=== PATIENT | male | born 1985 | race Caucasian/White ===

== ENCOUNTER 2018-09-25 13:35 | Emergency (ER) | payer SELFPAY ==
[2018-09-25 14:06] VITALS: BP 134/89; PULSE 81; RESP 16; TEMP 36.8; O2SAT 96; BMI 24.3
[2018-09-25] MEDS: PROPARACAINE 0.5% OPHTH SOL 1 DROPS EYE-LEFT (16:38)
--- NOTE | 2018-09-25 17:00 | ED_ITS ---
HPI - Eye Problem <BELKIS Hawley - Last Filed: 09/25/18 22:47> General Chief complaint: Eye Problems Stated complaint: left eye, pressure, sensitive to light, watering Time Seen by Provider: 09/25/18 16:11 Source: patient Mode of arrival: ambulatory Limitations: no limitations History of Present Illness HPI Narrative: 33-year-old male with history of sarcoidosis and is a nonsmoker here for complaint of pain and redness to his left eye that started this morning. He denies any trauma to the left eye. Pain is worsened with bright lights. He states that the eye has been watering. He states he were contacts yesterday and slept with them. He removed the contact today he said the contacts were intact. There was a brand new set of contacts he put his eye yesterday. He denies any visual changes. No other concerns or complaints at this timeframe. chief complaint: eye redness Related Data Home Medications Medication Instructions Recorded Confirmed prednisone 20 mg tablet mg PO 90 Days #90 tab 02/15/18 Previous Rx's Medication Instructions Recorded lamotrigine ER 200 mg 400 mg PO QDAY #180 tab 02/15/18 tablet,extended release 24 hr lamotrigine 200 mg tablet 400 mg PO DAILY #60 tab MDD 400mg 08/17/18 ciprofloxacin HCl See Rx Instructions .ROUTE 09/25/18 .COMPLEX #5 ml Allergies Allergy/AdvReac Type Severity Reaction Status Date / Time No Known Drug Allergies Allergy Verified 09/25/18 14:06 Review of Systems <BELKIS Hawley - Last Filed: 09/25/18 22:47> Constitutional Denies chills, Denies fatigue, Denies fever(s), Denies lethargy and Denies weakness Eyes Reports irritation ENT Ears, Nose, Mouth, and Throat: Denies change in voice, Denies neck pain, Denies sore throat and Denies throat swelling Respiratory Denies wheezing Gastrointestinal Gastrointestinal: Denies abdominal pain, Denies change in bowel habits, Denies diarrhea, Denies nausea and Denies vomiting Musculoskeletal Denies neck pain Integumentary/Breasts Denies pruritus, Denies erythema, Denies rash and Denies wounds Neurologic Denies confusion and Denies weakness Psychiatric Denies anxiety, Denies confusion, Denies depression, Denies homicidal ideation and Denies suicidal ideation Endocrine Denies fatigue and Denies flushing Allergic/Immunologic Denies urticaria, Denies throat swelling and Denies wheezing PFSH <BELKIS Hawley - Last Filed: 09/25/18 22:47> Social History Smoking Status: Never smoker Social History Smoking Status: Never smoker Exam <BELKIS Hawley - Last Filed: 09/25/18 22:47> Initial Vital Signs Initial Vital Signs: Vital Signs Temperature 98.2 F 09/25/18 14:06 Pulse Rate 81 09/25/18 14:06 Respiratory Rate 16 09/25/18 14:06 Blood Pressure 134/89 09/25/18 14:06 Pulse Oximetry 96 09/25/18 14:06 Const General: cooperative and well developed Nutritional Appearance: well nourished Orientation: alert, awake, oriented x3 and not confused HENMT Throat: posterior oropharynx normal and posterior oropharynx abnormal Eyes Conjunctivae: conjunctival abnormality left conjunctival injection Sclera: sclerae normal Cornea: fluorescein used ( Small round 1 mm circular area of uptake to the 11 o'clock cornea. ) Pupils: PERRL EOM: EOM intact bilaterally Other: no foreign bodies appreciated. No other findings on exam. ocular pressure at 20 Cardio Rate: regular rate Rhythm: regular rhythm Heart Sounds: no click, no gallops, no murmurs and no rubs Pulses: normal peripheral pulses Neuro General: alert, oriented x3, gait normal and no focal motor deficits Speech: speech normal <Julia Oleary MD - Last Filed: 09/29/18 18:11> Initial Vital Signs Initial Vital Signs: Vital Signs Temperature 98.2 F 09/25/18 14:06 Pulse Rate 81 09/25/18 14:06 Respiratory Rate 16 09/25/18 14:06 Blood Pressure 134/89 09/25/18 14:06 Pulse Oximetry 96 09/25/18 14:06 Course <BELKIS Hawley - Last Filed: 09/25/18 22:47> Orders Ordered: Discontinued Medications Proparacaine HCl (Parcaine 0.5% Ophth Margie) 1 drops EYE-LEFT NOW ONE Stop: 09/25/18 16:38 Last Admin: 09/25/18 16:38 Dose: 1 drop Vital Signs - 8 hr 09/25/18 17:25 Pulse Rate 82 Respiratory Rate 18 Blood Pressure 143/99 H Pulse Oximetry 99 <Julia Oleary MD - Last Filed: 09/29/18 18:11> Orders Ordered: Discontinued Medications Proparacaine HCl (Parcaine 0.5% Ophth Margie) 1 drops EYE-LEFT NOW ONE Stop: 09/25/18 16:38 Last Admin: 09/25/18 16:38 Dose: 1 drop Vital Signs - 8 hr 09/25/18 17:25 Pulse Rate 82 Respiratory Rate 18 Blood Pressure 143/99 H Pulse Oximetry 99 MDM - Eye Problem <BELKIS Hawley - Last Filed: 09/25/18 22:47> MDM Narrative Medical decision making narrative: no foreign bodies are found on exam. Visual acuity is 20/25. ocular pressure was tested at 20. very small area of fluorescein uptake approximately 1 mm in diameter in room to the 11 o'clock position of the cornea. No other fluorescein uptake was seen. No foreign bodies. Will treat for corneal abrasion/conjunctivitis with Ciprodex. he is encouraged to follow up with primary care provider the next few days for re- evaluation or follow up with Ophthalmology. for any worsening symptoms return emergency room. no contacts until symptoms resolve. For any worsening symptoms return emergency room. Discharge Plan Departure Patient Disposition: Home Clinical Impression: Corneal abrasion Qualifiers: Encounter type: initial encounter Laterality: left Qualified Code(s): S05.02XA - Injury of conjunctiva and corneal abrasion without foreign body, left eye, initial encounter Discharge Date/Time: 09/25/18 17:26 Interventions: ED Discharge Assessment Last Done: 09/25/18 17:25 Instructions: DI for Corneal Abrasion, DI for Conjunctivitis Activity Restrictions/Additional Instructions: very small abrasion was seen into the cornea. You are covered with an antibiotic to treat for infection to abrasion area and also cover for conjunctivitis use [id number] Tylenol or Motrin as needed for any discomfort. Follow up with her primary care provider in the next couple days for re-evaluation. May also follow up with Ophthalmology at the number provided. Use eye glasses and no contacts until symptoms resolve. For any worsening sympt Prescriptions: New ciprofloxacin HCl 0.3 % drops See Rx Instructions .ROUTE .COMPLEX Qty: 5 RF: 0 No Action prednisone 20 mg TABLET PO 90 Days Qty: 90 RF: 0 lamotrigine 200 mg tablet extended release 24hr 400 mg PO QDAY Qty: 180 RF: 1 Hold Instructions: no insurance, cost too high lamotrigine 200 mg tablet 400 mg PO DAILY MDD 400mg Qty: 60 RF: 4 Referrals: Mayco Franco MD [Physician] - Sera Rodriguez PA-C [Primary Care Provider] - Stand Alone Forms: Work Release Note
[2018-09-25 17:25] VITALS: BP 143/99; PULSE 82; RESP 18; O2SAT 99
== END 2018-09-25 17:26 | disposition home or self-care (01) ==
PROVIDERS: Emergency Provider Nurse Practitioner Family; PCP Physician Assistant
DX: S05.02XA Injury of conjunctiva and corneal abrasion without foreign body, left eye, initial encounter (principal)
CPT/HCPCS: 99283

== ENCOUNTER 2020-01-19 12:07 | Emergency (ER) | payer OTHER, SELFPAY ==
[2020-01-19 12:17] VITALS: BP 163/116; PULSE 89; RESP 14; TEMP 36.6; O2SAT 100; BMI 25.8
--- NOTE | 2020-01-19 12:48 | ED.WOUNDLAC ---
HPI - Wound/Laceration <BELKIS Sam - Last Filed: 01/19/20 19:35> General Chief Complaint: Wound/Laceration Stated Complaint: Laceration To Left Pointer Finger Time Seen by Provider: 01/19/20 12:25 Source: patient Mode of arrival: Ambulatory Limitations: no limitations History of Present Illness HPI narrative: 34yo male presents to the emergency department for a laceration to his left index finger. He states he was working when he cut it with a saw around 11AM (two hours ago), patient kept working, put some electrical tape on the laceration. Patient states his last Tdap was approximately 10 months ago. He denies any numbness, tingling, difficulty moving his finger, fevers, chills, nausea, vomiting, diarrhea, or any other concerns. Patient denies taking blood thinners. Related Data Previous Rx's Medication Instructions Recorded lamotrigine 200 mg tablet 400 mg PO DAILY #60 tab MDD 400mg 08/11/19 Allergies Allergy/AdvReac Type Severity Reaction Status Date / Time No Known Drug Allergies Allergy Verified 01/19/20 12:46 Review of Systems <BELKIS Sam - Last Filed: 01/19/20 19:35> Review of Systems Narrative: REVIEW OF SYSTEMS: GENERAL: Denies fever or chills. HENT: Denies head trauma. EYE: Denies vision changes. CARDIOVASCULAR: Denies syncope. MUSCULOSKELETAL: Denies weakness, or deformities. INTEGUMENTARY: Complains of left finger laceration, see HPI. NEURO: Denies numbness or tingling. Patient History <BELKIS Sam - Last Filed: 01/19/20 19:35> Medical History Shingles (Acute) Social History Smoking Status: Never smoker Smoking Status: Never smoker alcohol intake frequency: a few times a month Substance Use Type: does not use Exam <BELKIS Sam - Last Filed: 01/19/20 19:35> Initial Vital Signs Initial Vital Signs: Vital Signs Temperature 97.9 F 01/19/20 12:17 Pulse Rate 89 01/19/20 12:17 Respiratory Rate 14 01/19/20 12:17 Blood Pressure 163/116 H 01/19/20 12:17 Pulse Oximetry 100 01/19/20 12:17 PHYSICAL EXAMINATION: GENERAL: Well groomed, alert, and cooperative. Answers questions promptly and appropriately. Vital signs noted. HENT: Normocephalic, atraumatic. RESPIRATORY: Normal respiratory rate, trachea midline, airway patent. No stridor, nasal flaring or accessory muscle use. MUSCULOSKELETAL: Normal gait and coordination. Equal tone and mass bilaterally. EXTREMITIES: CMS intact. Moves all extremities. SKIN: Warm, dry, soft, appropriate color for ethnicity. 3cm laceration to left finger proximal to MIP, full range of motion of MIP and DIP joints. Good strength against resistance with flexion and extension. NEURO: Alert and Oriented X 3. Good coordination. Intact light touch sensation proximal and distal to laceration. PSYCH: Appropriate affect and mood. <Franc Bojorquez DO - Last Filed: 01/20/20 06:59> Initial Vital Signs Initial Vital Signs: Vital Signs Temperature 97.9 F 01/19/20 12:17 Pulse Rate 89 01/19/20 12:17 Respiratory Rate 14 01/19/20 12:17 Blood Pressure 163/116 H 01/19/20 12:17 Pulse Oximetry 100 01/19/20 12:17 Procedures <BELKIS Sam - Last Filed: 01/19/20 19:35> Laceration Repair Laceration 1: Site: hand Side (If applicable): right Size (cm): 3 Description: linear Depth: simple, single layer Local Anesthetic: lidocaine 1% and bupivacaine 0.5% Amount of anesthesia used (mL): 5 Pre-repair: wound explored Skin layer closed with: nylon Size (cm): 5-0 Number of sutures: 4 Technique: simple, interrupted Course <BELKIS Sam - Last Filed: 01/19/20 19:35> Orders Ordered: Discontinued Medications Bacitracin (Bacitracin) 1 applic TOP NOW ONE Stop: 01/19/20 13:07 Last Admin: 01/19/20 13:28 Dose: 1 applic Documented by: SHAHIDA Lidocaine/Sodium Bicarbonate (Buffered Lidocaine 10 Ml Syr) 10 ml INJ NOW ONE Stop: 01/19/20 13:07 Last Admin: 01/19/20 13:28 Dose: 10 ml Documented by: SHAHIDA Vital Signs Vital signs: Vital Signs - 8 hr 01/19/20 12:17 01/19/20 14:06 Temperature 97.9 F Pulse Rate 89 Respiratory Rate 14 Blood Pressure 163/116 H 150/98 H Pulse Oximetry 100 <Franc Bojorquez DO - Last Filed: 01/20/20 06:59> Orders Ordered: Discontinued Medications Bacitracin (Bacitracin) 1 applic TOP NOW ONE Stop: 01/19/20 13:07 Last Admin: 01/19/20 13:28 Dose: 1 applic Documented by: SHAHIDA Lidocaine/Sodium Bicarbonate (Buffered Lidocaine 10 Ml Syr) 10 ml INJ NOW ONE Stop: 01/19/20 13:07 Last Admin: 01/19/20 13:28 Dose: 10 ml Documented by: SHAHIDA Vital Signs Vital signs: Vital Signs - 8 hr 01/19/20 12:17 01/19/20 14:06 Temperature 97.9 F Pulse Rate 89 Respiratory Rate 14 Blood Pressure 163/116 H 150/98 H Pulse Oximetry 100 MDM - Wound/Laceration <BELKIS Sam - Last Filed: 01/19/20 19:35> Medical Records Attestation: I reviewed the patient's medical records. Lab Data Attestation: I reviewed the patient's lab results. Imaging Data Extremity x-ray #1: Radiologist's Impression: [place] [address] XRay Report Signed Patient: Fausto Jerome PMR#: [id number] : 1985Acct:[id number] Age/Sex: 34 / MDate of Service: 01/19/20 Loc: ED Accession Number: [id number] Procedure: XR finger LT min 2V Ordering Provider: Luanne Garza PROCEDURE: XR FINGER LT MIN 2V INDICATIONS: laceration r/o fracture TECHNIQUE: AP hand, 2 views of the left index finger(s) acquired. COMPARISON: None. FINDINGS: Bones: No acute fractures or dislocations. Chronic-appearing corticated ossification over the radial side at the base of the index finger proximal phalanx. No suspicious bony lesions. Soft tissues: No suspicious soft tissue calcifications. IMPRESSION: Left index finger without acute fracture or dislocation. No radiopaque soft tissue foreign body. Dictated by: Nick Davidson M.D. on 01/19/2020 at 13:51 Approved by: Nick Davidson M.D. on 01/19/2020 at 13:52 [facility] Narrative Medical decision making narrative: 34-year-old male presents emergency department for laceration of left index finger. X-ray negative without fracture or foreign body. Wound was closed with sutures after extensive irrigation. Tdap up-to-date. Less concern for tendon involvement and patient had full strength with resisted against flexion and extension, location of laceration less likely to affect tendon. No finger weakness. Return precautions given for new or worsening symptoms, discussed signs of infection. Patient agreed to plan of care verbalized understanding Discharge Plan Departure Patient Disposition: Home Clinical Impression: Laceration Discharge Date/Time: 01/19/20 14:06 Instructions: DI for Laceration Repair Activity Restrictions/Additional Instructions: Thank you for entrusting me with your care today. As discussed, your laceration has been repaired with 4 sutures. These will need to be removed in 7-10 days. Your x-rays negative for fractures. Keep the dressing in place for the next 24 hours, after that you may wash the wound with soap, apply Neosporin or bacitracin to the 1 to 2 times a day. No foreign bodies were found in your wound today. While there is low-risk for infection at this time, retained foreign bodies and infection are always possible with any cut or break in the skin. Please monitor the wound closely and be re-evaluated immediately if you develop any signs of infection such as pus, increasing redness, increasing pain, fevers, or any other concerns. Return emergency department for any new or worsening symptoms. Prescriptions: No Action lamotrigine 200 mg tablet 400 mg PO DAILY MDD 400mg Qty: 60 RF: 5 Referrals: Sera Rodriguez PA-C [Primary Care Provider] -
[2020-01-19] MEDS: LIDO 1%/SOD BICARB 8.4% (10ML) 10 ML SYRINGE INJ (13:28)
[2020-01-19] MEDS: BACITRACIN OINT 0.9 GM PCKT 1 APPLIC TOP (13:28)
[2020-01-19 14:06] VITALS: BP 150/98
== END 2020-01-19 14:06 | disposition home or self-care (01) ==
PROVIDERS: Emergency Provider Nurse Practitioner; PCP Physician Assistant
DX: S61.211A Laceration without foreign body of left index finger without damage to nail, initial encounter (principal); W29.3XXA Contact with powered garden and outdoor hand tools and machinery, initial encounter; Y99.0 Civilian activity done for income or pay
CPT/HCPCS: 12002; 73140; 99283; 99284

== ENCOUNTER → 2022-05-15 07:13 | Outpatient (CLI) | payer OTHER, SELFPAY ==
[2022-05-15 08:35] LABS: Add Manual Diff / Slide Review NO; Basophils Absolute Auto 0 /uL (0-100); Basophils Percent Auto 0.8 % (0-2); Eosinophils Absolute Auto 100 /uL (0-450); Eosinophils Percent Auto 2.1 % (2-4); Hematocrit 40.3 % (41-53); Hemoglobin 13.9 g/dL (13.5-17.5); Lymphocytes Absolute Auto 1200 /uL (1100-4500); Lymphocytes Percent Auto 28.6 % (25-40); Mean Corpuscular HGB Conc 34.6 % (30-36); Mean Corpuscular Hemoglobin 30.3 PG (26-34); Mean Corpuscular Volume 87.5 fL (80-100); Monocytes Absolute Auto 400 /uL (0-900); Monocytes Percent Auto 9.5 % (3-14); Neutrophils Absolute Auto 2500 /uL (1500-7000); Platelet Count 278 X10^3/uL (150-400); Red Blood Cell Count 4.61 X10^6/uL (4.5-5.9); Red Cell Distribution Width 13.6 % (11.6-14.8); White Blood Cell Count 4.3 X10^3/uL (4.5-11.0)
[2022-05-15 09:06] LABS: Alanine Aminotransferase 42 IU/L (<50); Albumin 4.8 g/dL (3.5-5.0); Albumin Globulin Ratio 1.5 (1.0-2.8); Alkaline Phosphatase 103 U/L (38-126); Aspartate Aminotransferase 26 IU/L (17-59); BUN Creatinine Ratio 15.5 (6-22); Bilirubin Total 0.4 mg/dL (0.2-1.3); Blood Urea Nitrogen 13 mg/dL (9-20); Calcium 9.6 mg/dL (8.4-10.2); Carbon Dioxide 27 mmol/L (22-32); Chloride 104 mmol/L (98-107); Cholesterol 258 mg/dL (140-199); Estimated Glomerular Filt Rate > 60 mL/min (>60); Globulin 3.2 g/dL (1.7-4.1); Glucose 108 mg/dL (70-100); HDL Cholesterol 36 mg/dL (40-60); HEMOLYSIS < 15 (0-50); LDL Cholesterol Calculated 190 mg/dL (<100); Potassium 4.3 mmol/L (3.4-5.1); Sodium 143 mmol/L (137-145); Triglycerides 161 mg/dL (35-150)
[2022-05-15 09:12] LABS: Creatinine Urine Random 271.4 mg/dL
[2022-05-15 09:14] LABS: Free T4, Direct Thyroxine 1.02 ng/dL (0.78-2.19)
[2022-05-15 09:15] LABS: Microalbumi Creatinin Ratio Ur 6.6 ug/mg CR (<30); Microalbumin Urine Random 1.8 mg/dL (0-1.6)
[2022-05-15 09:27] LABS: Thyroid Stimulating Hormone 1.51 uIU/mL (0.47-4.68)
== END ==
PROVIDERS: PCP Nurse Practitioner; Referring Provider Nurse Practitioner; Visit Provider Nurse Practitioner
DX: Z00.00 Encounter for general adult medical examination without abnormal findings (principal)
CPT/HCPCS: 36415; 80053; 80061; 82043; 82570; 84439; 84443; 84481; 85025

== ENCOUNTER → 2022-11-10 06:51 | Outpatient (CLI) | payer OTHER, SELFPAY ==
[2022-11-10 08:39] LABS: Alanine Aminotransferase 53 IU/L (<50); Albumin 4.7 g/dL (3.5-5.0); Albumin Globulin Ratio 1.5 (1.0-2.8); Alkaline Phosphatase 97 U/L (38-126); Aspartate Aminotransferase 35 IU/L (17-59); BUN Creatinine Ratio 17.6 (6-22); Bilirubin Total 0.7 mg/dL (0.2-1.3); Blood Urea Nitrogen 13 mg/dL (9-20); Calcium 9.6 mg/dL (8.4-10.2); Carbon Dioxide 28 mmol/L (22-32); Chloride 102 mmol/L (98-107); Cholesterol 239 mg/dL (140-199); Estimated Glomerular Filt Rate > 60 mL/min (>60); Globulin 3.1 g/dL (1.7-4.1); Glucose 98 mg/dL (70-100); HDL Cholesterol 41 mg/dL (40-60); HEMOLYSIS < 15 (0-50); LDL Cholesterol Calculated 171 mg/dL (<100); Potassium 4.2 mmol/L (3.4-5.1); Sodium 140 mmol/L (137-145); Total Protein 7.8 g/dL (6.3-8.2); Triglycerides 135 mg/dL (35-150)
[2022-11-11 05:13] LABS: Labcorp Hemoglobin (Hb) A1c 5.5 % (4.8-5.6)
[2022-11-18 07:34] LABS: Percent Free Testosterone 1.61 % (1.50-4.20); Testosterone Free 7.24 ng/dL (5.00-21.00); Testosterone Total 449.4 ng/dL (264.0-916.0)
== END ==
PROVIDERS: PCP Nurse Practitioner; Referring Provider Nurse Practitioner; Visit Provider Nurse Practitioner
DX: I10 Essential (primary) hypertension (principal); E78.2 Mixed hyperlipidemia; R73.01 Impaired fasting glucose; R68.82 Decreased libido
CPT/HCPCS: 36415; 80053; 80061; 83036; 84402; 84403

== ENCOUNTER → 2023-09-27 06:53 | Outpatient (CLI) | payer OTHER, SELFPAY ==
[2023-09-27 08:41] LABS: Alanine Aminotransferase 32 IU/L (<50); Albumin 4.5 g/dL (3.5-5.0); Albumin Globulin Ratio 1.6 (1.0-2.8); Alkaline Phosphatase 87 U/L (38-126); Aspartate Aminotransferase 26 IU/L (17-59); BUN Creatinine Ratio 17.6 (6-22); Bilirubin Total 0.7 mg/dL (0.2-1.3); Blood Urea Nitrogen 13 mg/dL (9-20); Calcium 9.9 mg/dL (8.4-10.2); Carbon Dioxide 30 mmol/L (22-32); Chloride 106 mmol/L (98-107); Cholesterol 241 mg/dL (140-199); Estimated Glomerular Filt Rate > 60 mL/min (>60); Globulin 2.9 g/dL (1.7-4.1); Glucose 102 mg/dL (70-100); HDL Cholesterol 36 mg/dL (40-60); HEMOLYSIS < 15 (0-50); LDL Cholesterol Calculated 170 mg/dL (<100); Potassium 4.9 mmol/L (3.4-5.1); Sodium 141 mmol/L (137-145); Total Protein 7.4 g/dL (6.3-8.2); Triglycerides 176 mg/dL (35-150)
[2023-09-27 17:12] LABS: HIV 1 & 2 Ab/Ag 4th Gen Combo NEGATIVE (NEGATIVE); Hep C Virus Ab w/Reflex Quant NEGATIVE s/c (NEGATIVE)
== END ==
PROVIDERS: PCP Nurse Practitioner; Referring Provider Nurse Practitioner; Visit Provider Nurse Practitioner
DX: R73.01 Impaired fasting glucose (principal); E78.2 Mixed hyperlipidemia; Z11.59 Encounter for screening for other viral diseases; Z11.4 Encounter for screening for human immunodeficiency virus [HIV]
CPT/HCPCS: 36415; 80053; 80061; 86803; 87389

== ENCOUNTER → 2024-06-12 15:21 | Outpatient (CLI) | payer OTHER, SELFPAY ==
[2024-06-12 16:07] LABS: Add Manual Diff / Slide Review NO; Basophils Absolute Auto 0 /uL (0-100); Basophils Percent Auto 0.8 % (0-2); Eosinophils Absolute Auto 100 /uL (0-450); Eosinophils Percent Auto 1.2 % (2-4); Hematocrit 44.2 % (41-53); Hemoglobin 15.4 g/dL (13.5-17.5); Lymphocytes Absolute Auto 1500 /uL (1100-4500); Lymphocytes Percent Auto 24.3 % (25-40); Mean Corpuscular HGB Conc 34.9 % (30-36); Mean Corpuscular Hemoglobin 30.6 PG (26-34); Mean Corpuscular Volume 87.6 fL (80-100); Monocytes Absolute Auto 600 /uL (0-900); Monocytes Percent Auto 8.8 % (3-14); Neutrophils Absolute Auto 4100 /uL (1500-7000); Neutrophils Percent Auto 64.9 % (50-75); Platelet Count 286 X10^3/uL (150-400); Red Blood Cell Count 5.05 X10^6/uL (4.5-5.9); Red Cell Distribution Width 13.6 % (11.6-14.8); White Blood Cell Count 6.3 X10^3/uL (4.5-11.0)
[2024-06-12 16:25] LABS: Alanine Aminotransferase 66 IU/L (<50); Albumin 4.7 g/dL (3.5-5.0); Albumin Globulin Ratio 1.4 (1.0-2.8); Alkaline Phosphatase 92 U/L (38-126); Aspartate Aminotransferase 44 IU/L (17-59); BUN Creatinine Ratio 14.9 (6-22); Bilirubin Total 0.8 mg/dL (0.2-1.3); Blood Urea Nitrogen 13 mg/dL (9-20); Carbon Dioxide 27 mmol/L (22-32); Chloride 101 mmol/L (98-107); Cholesterol 315 mg/dL (140-199); Estimated Glomerular Filt Rate > 60 mL/min (>60); Globulin 3.4 g/dL (1.7-4.1); Glucose 92 mg/dL (70-100); HDL Cholesterol 41 mg/dL (40-60); HEMOLYSIS < 15 (0-50); LDL Cholesterol Calculated 218 mg/dL (<100); Sodium 137 mmol/L (137-145); Total Protein 8.1 g/dL (6.3-8.2); Triglycerides 279 mg/dL (35-150)
[2024-06-12 16:55] LABS: TSH w/ Reflex to FT4 1.54 uIU/mL (0.47-4.68)
== END ==
PROVIDERS: PCP Family Medicine; Referring Provider Family Medicine; Visit Provider Family Medicine
DX: Z13.29 Encounter for screening for other suspected endocrine disorder (principal); I10 Essential (primary) hypertension; E78.2 Mixed hyperlipidemia; F32.A Depression, unspecified
CPT/HCPCS: 80053; 80061; 84443; 85025

== ENCOUNTER → 2024-06-26 14:09 | Outpatient (CLI) | payer OTHER, SELFPAY | PROVIDERS: PCP Family Medicine; Referring Provider Family Medicine; Visit Provider Family Medicine | DX: D86.9 Sarcoidosis, unspecified (principal); J98.8 Other specified respiratory disorders | CPT/HCPCS: 94060; 94726; 94729 ==

== ENCOUNTER → 2024-07-11 15:17 | Outpatient (CLI) | payer OTHER, SELFPAY ==
--- NOTE | 2024-07-11 15:19 | DI.US.S_ITS ---
PROCEDURE: US ABDOMEN LIMITED INDICATIONS: Elevated LFT's TECHNIQUE: Real-time scanning was performed of the abdominal and retroperitoneal organs, with image documentation. COMPARISON: None. FINDINGS: Liver: Increased liver echogenicity with posterior attenuation, most consistent with moderate to severe steatosis. Gallbladder: No gallstones. No wall thickening. No pericholecystic edema. Negative sonographic Scott's sign. Biliary ducts: Intrahepatic bile ducts are non-dilated. Extrahepatic bile duct caliber measures 4.6 mm. Normal is 6-7 mm or less in diameter, or 10 mm or less post-cholecystectomy. Pancreas: Not well visualized due to overlying bowel gas. Miscellaneous: No free abdominal fluid. IMPRESSION: Hepatic steatosis. In the absence of alcohol use or other confounding factors, elevated LFTs may indicate [id number] steatohepatitis (MASH). Dictated by: Yousuf Benavides M.D. on 07/13/2024 at 10:24 Approved by: Yousuf Benavides M.D. on 07/13/2024 at 10:27
== END ==
PROVIDERS: PCP Family Medicine; Referring Provider Family Medicine; Visit Provider Family Medicine
DX: E78.2 Mixed hyperlipidemia (principal); R79.89 Other specified abnormal findings of blood chemistry; K76.0 Fatty (change of) liver, not elsewhere classified
CPT/HCPCS: 76705

== ENCOUNTER → 2024-07-13 07:51 | Outpatient (CLI) | payer OTHER, SELFPAY ==
[2024-07-13 08:55] LABS: Alanine Aminotransferase 55 IU/L (<50); Albumin 4.4 g/dL (3.5-5.0); Albumin Globulin Ratio 1.4 (1.0-2.8); Alkaline Phosphatase 78 U/L (38-126); Aspartate Aminotransferase 32 IU/L (17-59); BUN Creatinine Ratio 15.9 (6-22); Bilirubin Total 0.7 mg/dL (0.2-1.3); Blood Urea Nitrogen 14 mg/dL (9-20); Carbon Dioxide 28 mmol/L (22-32); Chloride 106 mmol/L (98-107); Cholesterol 259 mg/dL (140-199); Estimated Glomerular Filt Rate > 60 mL/min (>60); Globulin 3.1 g/dL (1.7-4.1); Glucose 104 mg/dL (70-100); HDL Cholesterol 36 mg/dL (40-60); HEMOLYSIS < 15 (0-50); LDL Cholesterol Calculated 172 mg/dL (<100); Potassium 4.2 mmol/L (3.4-5.1); Sodium 139 mmol/L (137-145); Total Protein 7.5 g/dL (6.3-8.2); Triglycerides 256 mg/dL (35-150)
[2024-07-15 02:35] LABS: Lipoprotein (a) 144.1 nmol/L (<75.0)
== END ==
PROVIDERS: PCP Family Medicine; Referring Provider Family Medicine; Visit Provider Family Medicine
DX: R79.89 Other specified abnormal findings of blood chemistry (principal); E78.2 Mixed hyperlipidemia; I10 Essential (primary) hypertension
CPT/HCPCS: 36415; 80053; 80061; 83695

== ENCOUNTER → 2024-08-15 15:56 | Outpatient (CLI) | payer OTHER, SELFPAY ==
--- NOTE | 2024-08-16 10:35 | DIET.OUTPTC ---
Dietary Outpatient Consultation Note Consultation Date: 08/15/2024 Assessment: 39 y M referred to dietitian for mixed hyperlipidemia. Fausto started dietary changes on 06/13/24 after appt with PCP reviewing his lab work. Completely changed dietary patterns, is eating plant forward diet/MeD style, but still includes poultry occasionally, is following a calorie deficit and recording food intake, does 3 mile walk 4x/wk. Presents to confirm he is on right track with the changes, caloric intake, and has a few food related questions (i.e clarification on oil types, appropriate amount of carbs at dinner, increasing variety of food options). Confirms he feels full and satisfied on current meal plan. Listens to hunger cues, will have post dinner snack if needed. Diet recall: B-Oatmeal 20 g protein 290kcals, berries 2/3-1c and 1 tbsp pb + 1 whole grapefruit L-Lentil soup/leftovers or rx bar, handful peanuts, fruit if busy (2x/wk) D-lentil soup, chicken based dinner + big salad with dark greens and/or 1-2 servings roasted vegs +sliced sourdough bread, or tacos from restaurant occasionally sometimes handful of cocoa coated almonds after dinner based on hunger level Doing 1750 kcals per day. Gradual weight loss occurring, around 1 lb/wk Cut out dairy r/t concerns on chol and SFA. Was not interested in medication, wants to do dietary changes first. Lipid panel taken 1 month later and already decreased chol and TGs and LDL. HDL decreased, low at 36 over initial 41. Ht: 5 ft 10 in Wt: 214 lb per pt Weight History: 222 lb on 06/13/24 217 lb on 07/14/24 Pt reports now 214 lb (08/15/24) (-4% weight loss within 2 months) Nutrition Diagnosis: Altered nutrition related labs (lipid panel) r/t previous high energy, high saturated fat dietary patterns aeb pt reports previous consumption of higher saturated fat foods, convenience meals, and lower activity level Interventions: Discussed the following -Caloric needs based on activity, increasing caloric intake if activity increases -Oil types, healthy fats -CHO portions at dinner with sourdough bread -Dairy as part of dietary pattern -Increasing variety Goals: okay to include 1 serving cheese in diet daily or low fat dairy options (1% milk, low fat slovenian yogurt), have a new recipe 1x/wk to increase meal variety EER: [id number] x1.4PA-deficit=~1800kcals Monitoring/Evaluations: Overall impressions is that patient has done a lot of research on following MeD type eating patterns and is on right track based on assessment. Pt is confident in continuing this. F/u PRN. Electronically Signed by: Aaliyah Chua 08/16/24 10:35 Clinical Dietitian [address] [id number]
== END ==
PROVIDERS: PCP Family Medicine; Referring Provider Family Medicine
DX: E78.2 Mixed hyperlipidemia (principal); Z71.3 Dietary counseling and surveillance
CPT/HCPCS: 97802

== ENCOUNTER → 2025-04-21 09:01 | Outpatient (CLI) | payer OTHER, SELFPAY ==
[2025-04-21 11:01] LABS: Alanine Aminotransferase 36 IU/L (<50); Albumin 4.7 g/dL (3.5-5.0); Albumin Globulin Ratio 1.7 (1.0-2.8); Alkaline Phosphatase 80 U/L (38-126); Blood Urea Nitrogen 11 mg/dL (9-20); Calcium 9.5 mg/dL (8.4-10.2); Carbon Dioxide 25 mmol/L (22-32); Chloride 105 mmol/L (98-107); Cholesterol 245 mg/dL (140-199); Estimated Glomerular Filt Rate > 60 mL/min (>60); Globulin 2.7 g/dL (1.7-4.1); Glucose 87 mg/dL (70-99); HDL Cholesterol 41 mg/dL (40-60); HEMOLYSIS < 15 (0-50); Potassium 4.2 mmol/L (3.4-5.1); Sodium 139 mmol/L (137-145); Total Protein 7.4 g/dL (6.3-8.2); Triglycerides 149 mg/dL (35-150)
== END ==
PROVIDERS: PCP Nurse Practitioner; Referring Provider Family Medicine; Visit Provider Family Medicine
DX: R79.89 Other specified abnormal findings of blood chemistry (principal); K76.0 Fatty (change of) liver, not elsewhere classified; R73.01 Impaired fasting glucose; E78.2 Mixed hyperlipidemia
CPT/HCPCS: 36415; 80053; 80061